=== PATIENT | female | born 1960 | race Caucasian/White ===

== ENCOUNTER 2023-11-22 08:20 | Emergency (ER) | payer OTHER, SELFPAY ==
[2023-11-22 08:22] VITALS: BP 213/126
--- NOTE | 2023-11-22 09:01 | ED.GENMED ---
History of Present Illness
General
Chief Complaint: Blood Pressure Problem
Time Seen by Provider: 11/22/23 08:35
History of Present Illness
History of Present Illness:
63-year-old female without significant past medical history presenting to the emergency department with concern for high blood pressure. Patient reports about 10 to 15 years ago she did have elevated blood pressure, was medicated, however took off
of the medication because her blood pressure had normalized. Her has high blood pressure, checks his blood pressure daily so she got in the habit of check her blood pressure every other day. Her blood pressure is usually normal, however in
the last 3 days has had elevated readings. Today had a very elevated reading, and felt slightly dizzy which prompted her to come to the hospital. She tried calling her PCP, however was unable to get an appointment. Denies chest pain, difficulty
breathing, weakness, numbness to her extremities, recent fever or illness. Denies headache or visual changes. Denies additional acute medical complaints.
Phy Exam
Physical Exam
Physical Exam:
General: Well-appearing, no clinical signs of dehydration, nontoxic and in no acute distress
HEENT: protecting airway
Neck: appears supple
CV: Normal heart rate, regular rhythm, no evidence of cyanosis
Resp: No accessory muscle use, no increased work of breathing, lungs clear to auscultation bilaterally
Abd: Soft and non-distended, no tenderness to palpation
Extremities: No deformities, no swelling, no erythema
Neuro: alert, no focal neurologic deficit
: deferred
Rectal: deferred
Psych: Normal affect
Skin: Intact
Course
Orders/Labs/Results
Orders:
Orders
11/22/23 08:26
ECG [Electrocardiogram (*1)] Urgent
Reason for Study: Hypertension, Benign
EKG- Treatment ONCE
11/22/23 08:56
Labetalol HCl [Trandate] 20 mg IV NOW STA
11/22/23 09:01
Complete Blood Count/With Diff Urgent
Comprehensive Metabolic Panel Urgent
Troponin I Urgent
11/22/23 09:07
Amlodipine [Norvasc] 5 mg PO NOW STA
11/22/23 09:58
CT Head W/o Iv Contrast Urgent
Comment:
Reason For Exam: dizzy, HTN
11/22/23 10:04
Labetalol HCl [Trandate] 10 mg IV NOW STA
Abnormal Lab Results
11/22/23
09:01
MCH 31.5 H pg
(27.0-31.0)
Glucose 102 H mg/dl
(70-99)
11/22/23 09:01
11/22/23 09:01
Vital Signs
Initial and Last Documented VS:
Initial Vital Signs
Temp Pulse Resp BP Pulse Ox
97.5 F 105 22 213/126 97
11/22/23 08:22 11/22/23 08:22 11/22/23 08:22 11/22/23 08:22 11/22/23 08:22
Last Documented Vital Signs
Temp Pulse Resp BP Pulse Ox
97.5 F 75 8 162/89 97
11/22/23 08:22 11/22/23 09:15 11/22/23 09:15 11/22/23 09:25 11/22/23 09:15
MDM/Problems Addressed
MDM/Problems Addressed:
63-year-old female without significant past medical history presenting for elevated blood pressure, without underlying known history. Vital signs on arrival are significant for high blood pressure.
On exam, patient is very anxious, tearful. She notes that she is anxious regarding her elevated blood pressure. Feels that this could be contributing to her symptoms. She notes some dizziness, otherwise is asymptomatic. No focal neurologic
deficits with lower suspicion for serious central neurologic process. Reports history of hypertension in the past, had previously been medicated. Ultimately suspect underlying hypertensive disease, worsened by anxiety. Blood pressure repeated in
the emergency department, improved without intervention. Will start on amlodipine. Lower suspicion for hypertensive urgency or emergency. Will screen with laboratory analysis and CT brain imaging. Will continue to closely monitor.
11:00 -patient's labs unremarkable. CT brain without acute intracranial abnormality. Patient's blood pressure has come down without intervention. Still slightly elevated, will administer small dose of labetalol. Patient has follow-up with PCP on
, will start on amlodipine. Otherwise feel stable for discharge with close interval follow-up. Return precautions communicated and patient verbalized understanding.
*EKG
Interpreted by ED Provider?: Yes
EKG Intrepretation Date: 11/22/23
EKG Intrepretation Time: 09:12
Interpretation: normal
Comparison EKG: no comparison EKG present
Heart Rate: 93
Rate: normal
Rhythm: sinus
[place]: normal axis
Interval: normal interval
QRS Pattern: normal QRS
Ischemia: no ischemia
*Critical Care Note
Total Time (30-74mins, 75-104mins- exclusive of procedures): Not Applicable
ED Attending Note
-
Portions of this chart may have been created with voice recognition software.� Occasional wrong word or��sound alike� substitutions may have occurred due to the inherent limitations of voice recognition software.
Discharge Plan
Departure
Referrals:
Rc Dyer MD [Family Provider] -
Interventions
Interventions:
*Risk Screen - Suicide Last Done: 11/22/23 08:22
*General Assessment Last Done: 11/22/23 08:22
*Neglect/Abuse Screening Last Done: 11/22/23 08:22
Discharge Date and Time
Print Language: ARABIC
[2023-11-22 09:03] VITALS: BP 162/89
[2023-11-22 09:12] LABS: % Basophils 0.6 % (0-2); % Eosinophils 1.4 % (0-6); % Immature Granulocytes 0.3 % (0-0.5); % Lymphocytes 30.3 % (20.5-51.1); % Monocytes 7.7 % (1.7-9.3); % Neutrophils 59.7 % (42.2-75.2); Absolute Eosinophils 0.1 10^3/uL (0-0.7); Absolute Monocytes 0.5 10^3/uL (0.1-0.6); Hematocrit 39.7 % (37.0-47.0); Mean Corp Hgb Conc. 35.3 g/dL (33.0-37.0); Mean Corpuscular Hgb 31.5 pg (27.0-31.0); Mean Corpuscular Volume 89.2 fL (81.0-99.0); Mean Platelet Volume 8.7 fL (7.4-10.4); Nucleated Red Blood Cells % 0 %; Platelet Count 292 10^3/uL (130-400); Red Blood Cell Count 4.45 10^6/uL (4.20-5.40); Red Cell Dist. Width 12.5 % (11.5-14.5); White Blood Cell Count 6.6 10^3/uL (4.8-10.8)
[2023-11-22] MEDS: NORVASC 5 MG PO (09:25)
[2023-11-22 09:34] LABS: ALT (SGPT) 19 U/L (0-35); AST (SGOT) 25 U/L (14-36); Albumin 4.5 g/dl (3.5-5.0); Alkaline Phosphatase 100 U/L (38-126); Blood Urea Nitrogen 11 mg/dl (7-17); Calcium 9.5 mg/dl (8.4-10.2); Carbon Dioxide 27 mmol/L (22-30); Chloride 104 mmol/L (98-107); Glucose 102 mg/dl (70-99); Potassium 4.3 mmol/L (3.5-5.1); Sodium 139 mmol/L (135-145); Total Bilirubin 0.4 mg/dl (0.2-1.3); Total Protein 6.9 g/dl (6.3-8.2); eGFR > 60.00
[2023-11-22 09:45] LABS: Troponin I < 0.012 ng/ml
[2023-11-22 10:00] VITALS: BP 167/105
[2023-11-22 10:54] VITALS: BP 164/90
[2023-11-22] MEDS: TRANDATE 10 MG IV (10:55)
[2023-11-22 11:00] VITALS: BP 148/73
[2023-11-22 11:20] VITALS: BP 142/71
== END 2023-11-22 11:40 | disposition home or self-care (01) ==
LOC: EMR 08:20
PROVIDERS: EMERGENCY PHYSICIAN Student in an Organized Health Care Education/Training Program; FAMILY PHYSICIAN Family Medicine
DX: I10 Essential (primary) hypertension (principal)
CPT/HCPCS: 99284; 96374; 70450; 80053; 84484; 85025; 93005